=== PATIENT | female | born 2000 | race Caucasian/White ===

== ENCOUNTER 2020-02-14 14:07 | Emergency (ER) | payer OTHER ==
[~2020-02-14] VITALS: Ht 170.2 cm; Wt 54.4 kg
[2020-02-14 14:27] VITALS: BP_SYST 131
--- NOTE | 2020-02-14 14:34 | NUR ---
Patient to ER bed 06 to gown for evaluation. Side rails up.
--- NOTE | 2020-02-14 14:36 | NUR ---
Patient arrived in the ED c/o left foot pain after dropping 5lb weight 3 days ago. Denied any chest pain or shortness of breath. Denied any fevers, chills, nausea or vomiting. Patient is alert and oriented x4, respirations even and unlabored, speaking in full sentences, and ambulating with a steady gait. VSS, pain level 6/10. Informed of the approximate wait time. Instructed to notify ED staff for any changes in condition or worsening of symptoms while waiting to be seen by an ED provider. Patient verbalized understanding.
--- NOTE | 2020-02-14 14:37 | NUR ---
ER Dr. Mccarthy at bedside examining patient.
--- NOTE | 2020-02-14 14:38 | NUR ---
X-ray done at bedside as ordered by Dr. Mccarthy. Patient tolerated the procedure well.
[2020-02-14 15:10] VITALS: BP_SYST 131
--- NOTE | 2020-02-14 15:10 | NUR ---
Patient given written and verbal discharge instructions and verbalizes understanding. ER MD discussed with patient the results and treatment provided. Patient in stable condition. ID arm band removed. Rx of Tylenol and Motrin given. Patient educated on pain management and to follow up with PMD. Pain Scale 0/10. Opportunity for questions provided and answered. Medication side effect fact sheet provided.
== END 2020-02-14 15:10 | disposition home or self-care (01) ==
LOC: SED 14:07
DX: M79.672 Pain in left foot (principal)
CPT/HCPCS: 99283